=== PATIENT | female | born 1975 | race Two or more races ===

== ENCOUNTER 2018-03-27 15:06 | Outpatient (CLI) | payer OTHER | END 2018-03-27 15:23 | disposition home or self-care (01) | LOC: SONOGRAMA 15:06 → MAMO-SONO 15:15 → SONOGRAMA 15:23 | DX: R10.2 Pelvic and perineal pain (principal); N83.299 Other ovarian cyst, unspecified side; D25.9 Leiomyoma of uterus, unspecified ==

== ENCOUNTER → 2021-02-16 09:18 | Outpatient (CLI) | payer OTHER | END | disposition home or self-care (01) | LOC: LAB 09:18 | DX: M06.89 Other specified rheumatoid arthritis, multiple sites (principal) ==